=== PATIENT | male | born 1955 | race Caucasian/White ===

== ENCOUNTER 2017-12-02 02:21 | Inpatient (IN) | payer OTHER ==
[~2017-12-02] VITALS: Ht 172.7 cm; Wt 107.7 kg
[~2017-12-02 02:21] MED LIST: ALBU17I INH; AMIO200 PO; ASPI81 PO; BISA PO; COLE5 PO; COMBAER INH; DOXY100T PO; FURO1TAB93 PO; IBUP600 PO; KCL10 PO; LISI5 PO; LOMO2.5T PO; MAGN400 PO; METO25 PO; NOVONP2 SQ; POLY1.4S EACH EYE; TEMA15CA PO
[2017-12-02 02:29] VITALS: BP 132/62; PULSE 92; RESP 16; TEMP 98.7; O2SAT 100
[2017-12-02 03:14] LABS: BASOPHIL # 0.1 TH/MM3 (0-0.2); BASOPHIL % 0.6 % (0.0-2.0); EOSINOPHIL # 0.2 TH/MM3 (0-0.4); EOSINOPHIL % 1.2 % (0.0-4.0); HEMATOCRIT 38.1 % (39.0-51.0); HEMOGLOBIN 12.7 GM/DL (13.0-17.0); LYMPH % 32.2 % (9.0-44.0); LYMPHOCYTE # 4.5 TH/MM3 (1.0-4.8); MEAN CELL VOLUME 91.4 FL (80.0-100.0); MEAN CORPUSCULAR HEMOGLOBIN 30.5 PG (27.0-34.0); MEAN CORPUSCULAR HGB CONC 33.4 % (32.0-36.0); MEAN PLATELET VOLUME 9.3 FL (7.0-11.0); MONO % 8.7 % (0.0-8.0); MONOCYTE # 1.2 TH/MM3 (0-0.9); NEUT % 57.3 % (16.0-70.0); PLATELET COUNT 211 TH/MM3 (150-450); RED BLOOD COUNT 4.17 MIL/MM3 (4.50-5.90); RED CELL DISTRIBUTION WIDTH 13.7 % (11.6-17.2)
--- NOTE | 2017-12-02 03:16 | PD ---
HPI Chief Complaint: Psychiatric Symptoms Time Seen by Provider: 02:42 Travel History International Travel<30 days: No Contact w/Intl Traveler<30days: No Traveled to known affect area: No History of Present Illness HPI 62-year-old male brought in by PD under Oro act. According to the Oro act the patient was displaying erratic behavior after consuming an unknown substance. The patient destroyed things inside of his residence and at one point became on and with a pitchfork. He went outside to confront imaginary people. He has been yelling at his neighbors an imaginary people that he claims her outside. Oro act also states that the patient advised that he wanted to smoke cocaine until he . Apparently the patient was taken to [facility] , however was sent here because they did not feel that he was in their scope of care because of his history of diabetes. Someone had mentioned that the patient was complaining of chest pain, however the patient denies this and states that he has diffuse body aches and is requesting vitamin E. He admits to taking Tracy today and smoking marijuana. PFSH Past Medical History Hx Anticoagulant Therapy: Yes (ASPIRIN) Arthritis: Yes (right arm) Asthma: Yes Cancer: No Cardiovascular Problems: Yes (TRIPLE BYPASS, HTN) High Cholesterol: Yes Chest Pain: Yes Congestive Heart Failure: Yes COPD: Yes Diabetes: Yes Patient Takes Glucophage: Yes Diminished Hearing: No Endocrine: Yes Genitourinary: No Hypertension: Yes Immune Disorder: No Implanted Vascular Access Dvce: Yes Musculoskeletal: Yes Neurologic: No Psychiatric: No Reproductive: No Respiratory: Yes (ASTHMATIC, COPD) Renal Failure: Yes (CHRONIC RENAL INSUFFICIENCY) Thyroid Disease: Yes (HYPOTHYROID) Past Surgical History Cardiac Surgery: Yes (TRIPLE BYPASS) Cholecystectomy: Yes Joint Replacement: Yes (total hip, pelvic ) Other Surgery: Yes Social History Alcohol Use: Yes (OCC) Tobacco Use: Yes (QUIT) Substance Use: Yes (TRACY TODAY, COCAINE X2 A MONTH) Allergies-Medications (Allergen,Severity, Reaction): Coded Allergies: atorvastatin (Unverified Allergy, Unknown, 12/02/17) Reported Meds & Prescriptions Reported Meds & Active Scripts Active Active Prescriptions or Reported Medications Unobtainable Review of Systems Except as stated in HPI: all other systems reviewed are Neg Physical Exam Narrative GENERAL: Well-developed, well-nourished, awake, alert, combative, no apparent distress. SKIN: Focused skin assessment warm/dry. HEAD: Atraumatic. Normocephalic. EYES: Pupils equal and round. No scleral icterus. No injection or drainage. ENT: Mucous membranes pink and moist. NECK: Trachea midline. No JVD. CARDIOVASCULAR: Regular rate and rhythm. RESPIRATORY: No accessory muscle use. Clear to auscultation. Breath sounds equal bilaterally. GASTROINTESTINAL: Abdomen soft, non-tender, nondistended. MUSCULOSKELETAL: No obvious deformities. No clubbing. No cyanosis. No edema. NEUROLOGICAL: Awake and alert. No obvious cranial nerve deficits. Motor grossly within normal limits. Normal speech. PSYCHIATRIC: Agitated, appears intoxicated. Data Data Last Documented VS Vital Signs Date Time Temp Pulse Resp B/P (MAP) Pulse Ox O2 Delivery O2 Flow Rate FiO2 12/02/17 02:32 105 18 12/02/17 02:29 98.7 132/62 (85) 100 Orders Orders Complete Blood Count With Diff (12/02/17 02:47) Comprehensive Metabolic Panel (12/02/17 02:47) Thyroid Stimulating Hormone (12/02/17 02:47) Psych Screen (12/02/17 02:47) Drug Screen, Random Urine (12/02/17 02:47) Alcohol (Ethanol) (12/02/17 02:47) Salicylates (Aspirin) (12/02/17 02:47) Tylenol (Acetaminophen) (12/02/17 02:47) Ckmb (Isoenzyme) Profile (12/02/17 02:47) Troponin I (12/02/17 02:47) Chest, Single Ap (12/02/17 02:47) Olanzapine Inj (Zyprexa Inj) (12/02/17 03:30) Lorazepam Inj (Ativan Inj) (12/02/17 03:45) Lorazepam Inj (Ativan Inj) (12/02/17 03:39) CKMB (12/02/17 03:05) CKMB% (12/02/17 03:05) Sodium Chlor 0.9% 1000 Ml Inj (Ns 1000 M (12/02/17 04:00) Sodium Chlor 0.9% 1000 Ml Inj (Ns 1000 M (12/02/17 04:00) Aspirin Supp (Aspirin Supp) (12/02/17 04:00) Labs Laboratory Tests Test 12/02/17 03:05 White Blood Count 14.0 TH/MM3 Red Blood Count 4.17 MIL/MM3 Hemoglobin 12.7 GM/DL Hematocrit 38.1 % Mean Corpuscular Volume 91.4 FL Mean Corpuscular Hemoglobin 30.5 PG Mean Corpuscular Hemoglobin Concent 33.4 % Red Cell Distribution Width 13.7 % Platelet Count 211 TH/MM3 Mean Platelet Volume 9.3 FL Neutrophils (%) (Auto) 57.3 % Lymphocytes (%) (Auto) 32.2 % Monocytes (%) (Auto) 8.7 % Eosinophils (%) (Auto) 1.2 % Basophils (%) (Auto) 0.6 % Neutrophils # (Auto) 8.0 TH/MM3 Lymphocytes # (Auto) 4.5 TH/MM3 Monocytes # (Auto) 1.2 TH/MM3 Eosinophils # (Auto) 0.2 TH/MM3 Basophils # (Auto) 0.1 TH/MM3 CBC Comment DIFF FINAL Differential Comment Blood Urea Nitrogen 48 MG/DL Creatinine 2.53 MG/DL Random Glucose 147 MG/DL Total Protein 7.4 GM/DL Albumin 4.2 GM/DL Calcium Level 9.1 MG/DL Alkaline Phosphatase 129 U/L Aspartate Amino Transf (AST/SGOT) 53 U/L Alanine Aminotransferase (ALT/SGPT) 25 U/L Total Bilirubin 1.1 MG/DL Sodium Level 142 MEQ/L Potassium Level 4.2 MEQ/L Chloride Level 109 MEQ/L Carbon Dioxide Level 22.6 MEQ/L Anion Gap 10 MEQ/L Estimat Glomerular Filtration Rate 26 ML/MIN Total Creatine Kinase 1343 U/L Troponin I LESS THAN 0.02 NG/ML Thyroid Stimulating Hormone 3rd Gen 2.760 uIU/ML Salicylates Level LESS THAN 1.7 MG/DL Acetaminophen Level LESS THAN 2.0 MCG/ML Ethyl Alcohol Level LESS THAN 3 MG/DL [facility] Medical Decision Making Medical Screen Exam Complete: Yes Emergency Medical Condition: Yes Interpretation(s) EKG: Sinus, rate 99, normal axis, normal intervals, anterior and septal Q waves , no acute ischemic abnormalities. Differential Diagnosis Drug-induced mood disorder, metabolic abnormality Narrative Course The patient is agitated, verbally, and physically aggressive toward staff. He is danger to both himself and to staff. He arrived in 4-point restraints and this was continued. He was written for chemical restraint as well. Initial vital signs show heart rate 92, blood pressure 132/62, pulse ox 100% on room air, oral temp of 98.7F. CBC: WBC 14, hemoglobin 12.7, hematocrit 38.1, platelets 211 CMP is remarkable for BUN 48, creatinine 2.53, GFR 26, random glucose 447. Troponin is negative Total CK is 1343 Tylenol and salicylate levels are negative. Alcohol level is negative. Chest x-ray: No infiltrate seen. Displaced discontinuous sternal wire sutures with increased and the amount of displacement compared to prior chest x-ray in November 2015. Patient was complaining of diffuse muscle aches. Lab work is consistent with rhabdomyolysis with acute kidney injury. He will be given IV fluids. Again the patient was extremely agitated, likely substance-induced, and was a danger to both himself and to staff, therefore he required 4-point restraints as well as chemical restraints. Patient will be admitted to the medical service for further treatment and evaluation. Case discussed with Dr Garcia who will admit the patient to he hospitalist service. Diagnosis Primary Impression: Rhabdomyolysis Qualified Codes: M62.82 - Rhabdomyolysis Additional Impressions: Acute kidney injury Drug-induced mood disorder Admitting Information Admitting Physician Requests: Admit Scripts Unable to Obtain Active Prescriptions or Reported Meds Isael Laboy MD Dec 02, 2017 03:16
[2017-12-02] MEDS ORDERED: OLANZapine IM 10 MG VIAL IM ONE (03:30)
[2017-12-02] MEDS ORDERED: LORazepam 2 MG/ML VIAL ONE (03:39)
[2017-12-02] MEDS ORDERED: LORazepam 2 MG/ML VIAL IV PUSH ONE (03:45)
--- NOTE | 2017-12-02 03:52 | RADRPT ---
EXAM DATE/TIME: 12/02/2017 03:14 [place] COMPARISON: CHEST SINGLE AP, November 14, 2015, 0:59. INDICATIONS : Chest pain. MEDICAL HISTORY : Hypertension. Chronic obstructive pulmonary disease. Hypothyroidism.diabetes, asthma SURGICAL HISTORY : Cholecystectomy. CABG ENCOUNTER: Initial ACUITY: 1 day PAIN SCORE: 3/10 LOCATION: Bilateral chest FINDINGS: Study quality is limited by patient motion. The lungs are symmetrically aerated. No focal infiltrat es seen. The heart is normal in size. Prior median sternotomy with significant discontinuity of the sternal wire sutures, increased to prior examination in 2015. Healed fractures of both clavicles st able from prior. CONCLUSION: . 1. No infiltrate seen. 2. Displaced discontinuous sternal wire sutures, with increase in the amount of displacement compared to prior chest x-ray in November 2015. Juan Alva MD on December 02, 2017 at 3:48 Board Certified Radiologist. This report was verified electronically.
[2017-12-02 03:54] LABS: ACETAMINOPHEN LESS THAN 2.0 MCG/ML (10.0-30.0); ALBUMIN 4.2 GM/DL (3.4-5.0); ALKALINE PHOSPHATASE 129 U/L (45-117); ALT (GPT) 25 U/L (12-78); AST (GOT) 53 U/L (15-37); BICARBONATE 22.6 MEQ/L (21.0-32.0); BLOOD UREA NITROGEN 48 MG/DL (7-18); CALCIUM 9.1 MG/DL (8.5-10.1); CHLORIDE 109 MEQ/L (98-107); CREATININE 2.53 MG/DL (0.60-1.30); GLOMERULAR FILTRATION RATE 26 ML/MIN (>89); GLUCOSE,RANDOM 147 MG/DL (74-106); SODIUM (NA) 142 MEQ/L (136-145); TOTAL BILIRUBIN ADULT 1.1 MG/DL (0.2-1.0); TOTAL PROTEIN 7.4 GM/DL (6.4-8.2); TROPONIN I LESS THAN 0.02 NG/ML (0.02-0.05)
[2017-12-02] MEDS ORDERED: SODIUM CHLOR 0.9% 1000 ML INJ 1,000 ML IV ONE ×2 (04:00)
[2017-12-02] MEDS ORDERED: ACETAMINOPHEN 325 MG TAB PO PRN (04:00)
[2017-12-02] MEDS ORDERED: ASPIRIN 300 MG SUPP RECTAL ONE (04:00)
[2017-12-02] MEDS ORDERED: BISACODYL 10 MG SUPP RECTAL PRN (04:00)
[2017-12-02] MEDS ORDERED: MAGNESIUM HYDROXIDE SUSP 30 ML CUP PO PRN (04:00)
[2017-12-02] MEDS ORDERED: SODIUM CHLORIDE 0.9% FLUSH 10 ML FLUSH IV FLUSH PRN (04:00)
[2017-12-02] MEDS ORDERED: ONDANSETRON HCL 4 MG/2 ML VIAL IVP PRN (04:00)
[2017-12-02] MEDS ORDERED: ACETAMINOPHEN/HYDROcodone 325 MG/5 MG TAB PO PRN (04:00)
[2017-12-02] MEDS ORDERED: LACTULOSE SYRUP 20 GM/30 ML CUP PO PRN (04:00)
[2017-12-02] MEDS ORDERED: SENNOSIDES 8.6 MG TAB PO PRN (04:00)
[2017-12-02] MEDS ORDERED: ACETAMINOPHEN/HYDROcodone 325 MG/10 MG TAB PO PRN (04:00)
[2017-12-02] MEDS ORDERED: GLUCAGON 1 MG/ML VIAL OTHER PRN (04:30)
[2017-12-02] MEDS ORDERED: DEXTROSE 50% IN WATER 50 ML VIAL(D50) IV PUSH PRN (04:30)
--- NOTE | 2017-12-02 04:35 | HHI.HP ---
HPI Service [facility] Primary Care Physician Unknown Admission Diagnosis Rhabdomyolysis, ALF, Drug induced mood disorder Diagnoses: (1) Chest pain Diagnosis: Principal (2) ALF (acute kidney injury) Diagnosis: Principal (3) Intoxication by drug Diagnosis: Principal (4) Rhabdomyolysis Diagnosis: Principal (5) DM (diabetes mellitus) Diagnosis: Principal Travel History International Travel<30 Days: No Contact w/Intl Traveler <30 Da: No Traveled to Known Affected Are: No History of Present Illness This is a 62-year-old male with a PMH of HTN, Hyperlipidemia, CAD s/p CABG, COPD , DM and Substance Abuse who was brought to the ER by Police under Oro Act from [facility]. On arrival, pt is significantly agitated/combative, threatening staff, requiring mechanical and pharmacologic restraints. Per report, pt was found to be yelling at imaginary people and waving a pitchfork around, told Police he wanted to smoke crack until he . Was taken to [facility], however in light of his h/o DM and c/o chest pain, he was brought here. Does admit to taking Selam. History otherwise difficult to obtain at this time. On arrival, BP 132/62, HR 92, O2 sat 100% on RA, Afebrile. WBC 14. Creatinine 2.53, previously 1.13 on 11/14/15. CPK 1343. Troponin negative. Alcohol negative. CXR with no infiltrate, sternal wire sutures in place, increase in amount of displacement. S/p IVF in ER. Review of Systems Except as stated in HPI: all other systems reviewed are Neg ROS: Unable to obtain secondary to sedation Past Family Social History Past Medical History PMH: HTN, Hyperlipidemia, CAD s/p CABG, COPD, DM and Substance Abuse Past Surgical History PAST SURGICAL HISTORY: CABG, Cholecystectomy, Hip Replacement Allergies: Coded Allergies: atorvastatin (Unverified Allergy, Unknown, 12/02/17) Family History PAST FAMILY HISTORY: Reviewed. No h/o DM or CAD Social History PAST SOCIAL HISTORY: Occasional alcohol. History of tobacco. +Selam, Cocaine and Marijuana. 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 HEENT: PERRLA, EOMI. No scleral icterus or conjunctival pallor. No lid lag or facial droop. CARDIOVASCULAR: Regular rate and rhythm. No obvious murmurs to auscultation. No chest tenderness to palpation. RESPIRATORY: No obvious rhonchi or wheezing. Clear to auscultation. Breath sounds equal bilaterally. GASTROINTESTINAL: Abdomen soft, non-tender, nondistended. BS normal. MUSCULOSKELETAL: Extremities without clubbing, cyanosis, or edema. No obvious deformities. NEUROLOGICAL: Lethargic from sedation. No focal neurologic deficits. Moving both upper and lower extremities spontaneously. Laboratory Laboratory Tests Test 12/02/17 03:05 White Blood Count 14.0 Red Blood Count 4.17 Hemoglobin 12.7 Hematocrit 38.1 Mean Corpuscular Volume 91.4 Mean Corpuscular Hemoglobin 30.5 Mean Corpuscular Hemoglobin Concent 33.4 Red Cell Distribution Width 13.7 Platelet Count 211 Mean Platelet Volume 9.3 Neutrophils (%) (Auto) 57.3 Lymphocytes (%) (Auto) 32.2 Monocytes (%) (Auto) 8.7 Eosinophils (%) (Auto) 1.2 Basophils (%) (Auto) 0.6 Neutrophils # (Auto) 8.0 Lymphocytes # (Auto) 4.5 Monocytes # (Auto) 1.2 Eosinophils # (Auto) 0.2 Basophils # (Auto) 0.1 CBC Comment DIFF FINAL Differential Comment Blood Urea Nitrogen 48 Creatinine 2.53 Random Glucose 147 Total Protein 7.4 Albumin 4.2 Calcium Level 9.1 Alkaline Phosphatase 129 Aspartate Amino Transf (AST/SGOT) 53 Alanine Aminotransferase (ALT/SGPT) 25 Total Bilirubin 1.1 Sodium Level 142 Potassium Level 4.2 Chloride Level 109 Carbon Dioxide Level 22.6 Anion Gap 10 Estimat Glomerular Filtration Rate 26 Total Creatine Kinase 1343 Creatine Kinase MB 14.7 Creatine Kinase MB % 1.1 Troponin I LESS THAN 0.02 Thyroid Stimulating Hormone 3rd Gen 2.760 Salicylates Level LESS THAN 1.7 Acetaminophen Level LESS THAN 2.0 Ethyl Alcohol Level LESS THAN 3 Result Diagram: 12/02/1730412/02/17 030 Caprini VTE Risk Assessment Caprini VTE Risk Assessment: No/Low Risk (score <= 1) Caprini Risk Assessment Model Point Value = 1 Point Value = 2 Point Value = 3 Point Value = 5 Age 41-60 Minor surgery BMI > 25 kg/m2 Swollen legs Varicose veins or History of unexplained or recurrent spontaneous Oral contraceptives or hormone replacement Sepsis (< 1 month) Serious lung disease, including pneumonia (< 1 month) Abnormal pulmonary function Acute myocardial infarction Congestive heart failure (< 1 month) History of inflammatory bowel disease Medical patient at bed rest Age 61-74 Arthroscopic surgery Major open surgery (> 45 min) Laparoscopic surgery (> 45 min) Malignancy Confined to bed (> 72 hours) Immobilizing plaster cast Central venous access Age >= 75 History of VTE Family history of VTE Factor V Leiden Prothrombin [id number] Lupus anticoagulant Anticardiolipin antibodies Elevated serum homocysteine Heparin-induced thrombocytopenia Other congenital or acquired thrombophilia Stroke (< 1 month) Elective arthroplasty Hip, pelvis, or leg fracture Acute spinal cord injury (< 1 month) Prophylaxis Regimen Total Risk Factor Score Risk Level Prophylaxis Regimen 0-1 Low Early ambulation 2 Moderate Order ONE of the following: *Sequential Compression Device (SCD) *Heparin 5000 units SQ BID 3-4 Higher Order ONE of the following medications: *Heparin 5000 units SQ TID *Enoxaparin/Lovenox 40 mg SQ daily (WT < 150 kg, CrCl > 30 mL/min) *Enoxaparin/Lovenox 30 mg SQ daily (WT < 150 kg, CrCl > 10-29 mL/min) *Enoxaparin/Lovenox 30 mg SQ BID (WT < 150 kg, CrCl > 30 mL/min) AND/OR *Sequential Compression Device (SCD) 5 or more Highest Order ONE of the following medications: *Heparin 5000 units SQ TID (Preferred with Epidurals) *Enoxaparin/Lovenox 40 mg SQ daily (WT < 150 kg, CrCl > 30 mL/min) *Enoxaparin/Lovenox 30 mg SQ daily (WT < 150 kg, CrCl > 10-29 mL/min) *Enoxaparin/Lovenox 30 mg SQ BID (WT < 150 kg, CrCl > 30 mL/min) AND *Sequential Compression Device (SCD) Assessment and Plan Problem List: (1) Chest pain ICD Code: R07.9 - Chest pain, unspecified (2) Rhabdomyolysis ICD Code: M62.82 - Rhabdomyolysis Status: Acute (3) ALF (acute kidney injury) ICD Code: N17.9 - Acute kidney failure, unspecified (4) Intoxication by drug ICD Code: F19.929 - Other psychoactive substance use, unspecified with intoxication, unspecified (5) DM (diabetes mellitus) ICD Code: E11.9 - Type 2 diabetes mellitus without complications Assessment and Plan A/P: 1. Chest Pain: h/o CAD s/p CABG, c/o chest pain per report, r/o ACS. Initial trop negative, EKG w/ no acute ischemia. S/p ASA in ER, will continue w/ ASA, hold Statin in light of ALLERGY. Admit to CIC, check serial cardiac enzymes. NTG prn. Consult Cardiology as needed for further evaluation/intervention. CXR w/ no acute findings, sternal wires w/ increased displacement, images reviewed by me. 2. Rhabdomyolysis: CPK 1343, pending U/a and Urine Drug Screen. IVF for hydration, check CPK for trend. 3. ALF: Creatinine 2.53, previously 1.13 on 11/14/15, U/a and UDP pending as above. IVF for hydration, repeat labs in am. 4. Drug Intoxication: currently under [place] Act by Police for intoxication, reportedly wanting to smoke crack until he , agitated/combative on arrival requiring restraints. Ativan prn. Consult Psych for further evaluation. 5. DM: Sliding scale w/ Accu-Cheks. Check Hgb A1c. 6. DVT Prophylaxis: SCD/Teds. 7. Social work for d/c planning as needed. 8. Case discussed w/ ER physician at length, labs/records/imaging reviewed by me. Physician Certification 2 Midnight Certification Type: Admission for Inpatient Services Order for Inpatient Services The services are ordered in accordance with Medicare regulations or non- Medicare payer requirements, as applicable. In the case of services not specified as inpatient-only, they are appropriately provided as inpatient services in accordance with the 2-midnight benchmark. Estimated LOS (days): 2 days is the estimated time the patient will need to remain in the hospital, assuming treatment plan goals are met and no additional complications. Post-Hospital Plan: Not yet determined Problem Qualifiers (1) Rhabdomyolysis: Qualified Codes: M62.82 - Rhabdomyolysis Paula Garcia MD Dec 02, 2017 04:35
[2017-12-02] MEDS: SODIUM CHLOR 0.9% 1000 ML INJ 1,000 ML IV SCH ×3 (04:42→21:49)
[2017-12-02 05:24] VITALS: BP 147/67; PULSE 102; RESP 20; O2SAT 99
[2017-12-02] MEDS: LORazepam 2 MG/ML VIAL IV PUSH PRN ×2 (06:47→19:51)
[2017-12-02 07:45] VITALS: BP 139/61; PULSE 89
[2017-12-02 07:54] LABS: BILIRUBIN, URINE NEG (NEG); BLOOD, URINE NEG (NEG); GLUCOSE,URINE NEG (NEG); HYALINE CAST, URINE 29 /lpf (RARE); KETONE, URINE NEG (NEG); MUCUS URINE FEW /lpf (OCC); NITRITE,URINE NEG (NEG); PH, URINE 5.5 (5.0-8.5); SQUAMOUS EPITHELIAL CELL URINE <1 /hpf (0-5); URINE COLOR YELLOW (YELLW/STRAW); URINE LEUKOCYTE ESTERASE NEG (NEG)
[2017-12-02] MEDS: INSULIN ASPART SUPPLEMENTAL SCALE SQ SCH ×4 (08:00→23:33)
--- NOTE | 2017-12-02 08:58 | EKG ---
Date Performed: 12/02/2017 Time Performed: 02:34:00 PTAGE: 62 years EKG: Sinus rhythm POSSIBLE LEFT ATRIAL ENLARGEMENT ANTEROSEPTAL MYOCARDIAL INFARCTION ABNORMAL ECG PREVIOUS TRACING : 11/14/2015 05.55 DOCTOR: Tamir Sprague Interpretating Date/Time 12/02/2017 08:57:06
[2017-12-02] MEDS: SODIUM CHLORIDE 0.9% FLUSH 10 ML FLUSH IV FLUSH SCH ×2 (09:00→23:21)
[2017-12-02] MEDS: DOCUSATE SODIUM 50 MG/SENNA 8.6 MG TAB PO SCH ×2 (09:00→23:21)
[2017-12-02] MEDS: ASPIRIN EC 81 MG TABEC PO SCH (09:00)
--- NOTE | 2017-12-02 12:45 | PD.PSY.CON ---
Provisional Diagnosis Admission Date Dec 02, 2017 at 04:05 [place] I. Substance induced psychosis, History of Present Illness Service Psychiatry Consult Requested By Medical team Reason for Consult Aggressive behavior Primary Care Physician Unknown HPI This is a 62-year-old male with a PMH of HTN, Hyperlipidemia, CAD s/p CABG, COPD , DM and Substance Abuse who was brought to the ER by Police under [place] Act from [facility]. On arrival, pt is significantly agitated/combative, threatening staff, requiring mechanical and pharmacologic restraints. Per report, pt was found to be yelling at imaginary people and waving a pitchfork around, told Police he wanted to smoke crack until he . [facility], however in light of his h/o DM and c/o chest pain, he was brought here. Does admit to taking Selam. History otherwise difficult to obtain at this time. On arrival, BP 132/62, HR 92, O2 sat 100% on RA, Afebrile. WBC 14. Creatinine 2.53, previously 1.13 on 11/14/15. CPK 1343. Troponin negative. Alcohol negative. CXR with no infiltrate, sternal wire sutures in place, increase in amount of displacement. Consulted to psychiatry to address aggressive behavior and psychosis. Was medicated with Ativan IV. On arrival to calm her down. On psychiatric evaluation today the patient is too sedated to cooperate, in spite of multiple attempts the patient did not wake up. She was not able to answer any of my question. Psychiatric assessment could not be completed. Past Family Social History Coded Allergies: atorvastatin (Unverified Allergy, Unknown, 12/02/17) Unable to Obtain Active Prescriptions or Reported Meds Current Medications Medications (Trade) Dose Ordered Sig/Leif Route Start Time Stop Time Status Last Admin Sodium Chloride 1,000 ml @ 100 mls/hr Q10H IV 12/02/17 03:59 12/02/17 04:42 (NS Flush) 2 ml UNSCH PRN IV FLUSH 12/02/17 04:00 (NS Flush) 2 ml BID IV FLUSH 12/02/17 09:00 (Zofran Inj) 4 mg Q6H PRN IVP 12/02/17 04:00 (Tylenol) 650 mg Q6H PRN PO 12/02/17 04:00 ([place] 5-325 Mg) 1 tab Q4H PRN PO 12/02/17 04:00 ([place] 10-325 Mg) 1 tab Q4H PRN PO 12/02/17 04:00 (Yudelka-Colace) 1 tab BID PO 12/02/17 09:00 (Milk Of Magnesia Liq) 30 ml Q12H PRN PO 12/02/17 04:00 (Senokot) 17.2 mg Q12H PRN PO 12/02/17 04:00 (Dulcolax Supp) 10 mg DAILY PRN RECTAL 12/02/17 04:00 (Lactulose Liq) 30 ml DAILY PRN PO 12/02/17 04:00 (Ativan Inj) 1 mg Q2H PRN IV PUSH 12/02/17 04:00 12/02/17 06:47 (D50w (Vial) Inj) 50 ml UNSCH PRN IV PUSH 12/02/17 04:30 (Glucagon Inj) 1 mg UNSCH PRN OTHER 12/02/17 04:30 (NovoLOG SUPPLEMENTAL SCALE) 1 ACHS SLIDING SCALE SQ 12/02/17 08:00 (Ecotrin Ec) 81 mg DAILY PO 12/02/17 09:00 Physical Exam Vital Signs Vital Signs Date Time Temp Pulse Resp B/P (MAP) Pulse Ox O2 Delivery O2 Flow Rate FiO2 12/02/17 07:45 89 139/61 (87) 12/02/17 05:24 20 99 Room Air 12/02/17 02:29 98.7 I/O 12/02/17 12/02/17 12/03/17 08:00 16:00 00:00 Intake Total 2000 ml Output Total 600 ml Balance 1400 ml Lab Results Test 12/02/17 03:05 12/02/17 06:30 12/02/17 11:14 White Blood Count 14.0 TH/MM3 Red Blood Count 4.17 MIL/MM3 Hemoglobin 12.7 GM/DL Hematocrit 38.1 % Mean Corpuscular Volume 91.4 FL Mean Corpuscular Hemoglobin 30.5 PG Mean Corpuscular Hemoglobin Concent 33.4 % Red Cell Distribution Width 13.7 % Platelet Count 211 TH/MM3 Mean Platelet Volume 9.3 FL Neutrophils (%) (Auto) 57.3 % Lymphocytes (%) (Auto) 32.2 % Monocytes (%) (Auto) 8.7 % Eosinophils (%) (Auto) 1.2 % Basophils (%) (Auto) 0.6 % Neutrophils # (Auto) 8.0 TH/MM3 Lymphocytes # (Auto) 4.5 TH/MM3 Monocytes # (Auto) 1.2 TH/MM3 Eosinophils # (Auto) 0.2 TH/MM3 Basophils # (Auto) 0.1 TH/MM3 CBC Comment DIFF FINAL Differential Comment Blood Urea Nitrogen 48 MG/DL Creatinine 2.53 MG/DL Random Glucose 147 MG/DL Total Protein 7.4 GM/DL Albumin 4.2 GM/DL Calcium Level 9.1 MG/DL Alkaline Phosphatase 129 U/L Aspartate Amino Transf (AST/SGOT) 53 U/L Alanine Aminotransferase (ALT/SGPT) 25 U/L Total Bilirubin 1.1 MG/DL Sodium Level 142 MEQ/L Potassium Level 4.2 MEQ/L Chloride Level 109 MEQ/L Carbon Dioxide Level 22.6 MEQ/L Anion Gap 10 MEQ/L Estimat Glomerular Filtration Rate 26 ML/MIN Total Creatine Kinase 1343 U/L Creatine Kinase MB 14.7 NG/ML Creatine Kinase MB % 1.1 % Troponin I LESS THAN 0.02 NG/ML Thyroid Stimulating Hormone 3rd Gen 2.760 uIU/ML Salicylates Level LESS THAN 1.7 MG/DL Acetaminophen Level LESS THAN 2.0 MCG/ML Ethyl Alcohol Level LESS THAN 3 MG/DL Urine Color YELLOW Urine Turbidity CLEAR Urine pH 5.5 Urine Specific [place] 1.016 Urine Protein TRACE mg/dL Urine Glucose (UA) NEG mg/dL Urine Ketones NEG mg/dL Urine Occult Blood NEG Urine Nitrite NEG Urine Bilirubin NEG Urine Urobilinogen LESS THAN 2.0 MG/DL Urine Leukocyte Esterase NEG Urine RBC 1 /hpf Urine WBC LESS THAN 1 /hpf Urine Squamous Epithelial Cells <1 /hpf Urine Hyaline Casts 29 /lpf Urine Mucus FEW /lpf Microscopic Urinalysis Comment CULT NOT INDICATED Urine Opiates Screen NEG Urine Barbiturates Screen NEG Urine Amphetamines Screen NEG Urine Benzodiazepines Screen POS Urine Cocaine Screen POS Urine Cannabinoids Screen NEG Mental Status Examination Mental Status Exam Remarks Limited due to the level of sedation Assessment & Plan Problem List: (1) Substance-induced psychotic disorder ICD Codes: F19.959 - Other psychoactive substance use, unspecified with psychoactive substance-induced psychotic disorder, unspecified Assessment & Plan: I was unable to complete my psychiatric assessment during this evaluation. The patient is too sedated to cooperate at this moment. Patient has been very combative, agitated and disorganized, was given Ativan to calm her down. I recommend Haldol 5 mg every 8 hours IM when necessary aggressive behavior and agitation. Can start Seroquel 25 mg twice a day to help her with impulse control. I will lifted the Oro act in place. I will follow-up in the floor. Assessment & Plan Estimated LOS: days Srikanth Alberto MD Dec 02, 2017 12:45
[2017-12-02 13:21] LABS: TROPONIN I LESS THAN 0.02 NG/ML (0.02-0.05)
[2017-12-02 13:49] VITALS: BP 145/76
[2017-12-02 14:09] LABS: HEMOGLOBIN A1C 13.4 % (4.3-6.0)
[2017-12-02 16:00] VITALS: BP 130/82; PULSE 98; RESP 20; O2SAT 96
[2017-12-02 20:26] VITALS: BP 153/86; PULSE 98; RESP 18; TEMP 97.6; O2SAT 97
[2017-12-02 20:39] LABS: TROPONIN I LESS THAN 0.02 NG/ML (0.02-0.05)
[2017-12-03 00:32] VITALS: BP 118/67; PULSE 82; RESP 21; TEMP 97.3; O2SAT 98
[2017-12-03] MEDS: SODIUM CHLOR 0.9% 1000 ML INJ 1,000 ML IV SCH ×2 (05:08→17:55)
[2017-12-03 05:20] VITALS: BP 104/54; PULSE 64; RESP 19; TEMP 97.6; O2SAT 98
[2017-12-03 08:00] VITALS: BP 136/81; PULSE 75; PULSE 93; RESP 19; TEMP 96.7; O2SAT 95
[2017-12-03] MEDS: INSULIN ASPART SUPPLEMENTAL SCALE SQ SCH ×4 (08:00→21:00)
[2017-12-03 08:48] LABS: AUTOMATED NEUTROPHIL # 4.9 TH/MM3 (1.8-7.7); BASOPHIL # 0.1 TH/MM3 (0-0.2); BASOPHIL % 0.7 % (0.0-2.0); EOSINOPHIL # 0.3 TH/MM3 (0-0.4); EOSINOPHIL % 3.5 % (0.0-4.0); HEMATOCRIT 37.3 % (39.0-51.0); HEMOGLOBIN 12.6 GM/DL (13.0-17.0); LYMPH % 29.1 % (9.0-44.0); LYMPHOCYTE # 2.4 TH/MM3 (1.0-4.8); MEAN CELL VOLUME 90.6 FL (80.0-100.0); MEAN CORPUSCULAR HEMOGLOBIN 30.6 PG (27.0-34.0); MEAN CORPUSCULAR HGB CONC 33.7 % (32.0-36.0); MEAN PLATELET VOLUME 8.3 FL (7.0-11.0); MONO % 8.1 % (0.0-8.0); MONOCYTE # 0.7 TH/MM3 (0-0.9); NEUT % 58.6 % (16.0-70.0); PLATELET COUNT 171 TH/MM3 (150-450); RED BLOOD COUNT 4.12 MIL/MM3 (4.50-5.90); RED CELL DISTRIBUTION WIDTH 13.9 % (11.6-17.2); WHITE BLOOD COUNT 8.4 TH/MM3 (4.0-11.0)
[2017-12-03] MEDS: SODIUM CHLORIDE 0.9% FLUSH 10 ML FLUSH IV FLUSH SCH ×2 (09:00→21:00)
[2017-12-03] MEDS: ASPIRIN EC 81 MG TABEC PO SCH (09:36)
[2017-12-03] MEDS: DOCUSATE SODIUM 50 MG/SENNA 8.6 MG TAB PO SCH ×2 (09:36→21:00)
[2017-12-03 10:31] LABS: ALBUMIN 3.3 GM/DL (3.4-5.0); ALKALINE PHOSPHATASE 126 U/L (45-117); ALT (GPT) 27 U/L (12-78); AST (GOT) 42 U/L (15-37); BICARBONATE 21.5 MEQ/L (21.0-32.0); BLOOD UREA NITROGEN 26 MG/DL (7-18); CALCIUM 8.6 MG/DL (8.5-10.1); CHLORIDE 113 MEQ/L (98-107); GLOMERULAR FILTRATION RATE 76 ML/MIN (>89); GLUCOSE,RANDOM 173 MG/DL (74-106); SODIUM (NA) 142 MEQ/L (136-145); TOTAL BILIRUBIN ADULT 0.4 MG/DL (0.2-1.0); TOTAL PROTEIN 6.2 GM/DL (6.4-8.2)
--- NOTE | 2017-12-03 10:41 | HHI.PR ---
Subjective Remarks The patient said he feels great. He has chronic chest pain from the surgery he had. He denies any acute chest pain. He denies shortness of breath. He says he took Selam and sleeping pills prior to coming to the hospital. Sitter was at the bedside. Discussed with nursing. Objective Vitals Vital Signs Date Time Temp Pulse Resp B/P (MAP) Pulse Ox O2 Delivery O2 Flow Rate FiO2 12/03/17 08:00 96.7 75 19 136/81 (99) 95 12/03/17 05:20 97.6 64 19 104/54 (71) 98 12/03/17 00:32 97.3 82 21 118/67 (84) 98 12/02/17 20:26 97.6 98 18 153/86 (108) 97 12/02/17 16:00 98 20 130/82 (98) 96 12/02/17 13:49 145/76 (99) I/O 12/02/17 12/02/17 12/02/17 12/03/17 12/03/17 12/03/17 07:00 15:00 23:00 07:00 15:00 23:00 Intake Total 2000 ml 480 ml Output Total 600 ml Balance 1400 ml 480 ml Intake Oral 480 ml IV Total 2000 ml Output Urine Total 600 ml # Voids 1 1 Result Diagram: 12/03/17 0830 12/03/17 0830 Imaging Last Impressions Chest X-Ray 12/02/17 0247 Signed Impressions: Service Date/Time: Saturday, December 02, 2017 03:14 - CONCLUSION: . 1. No infiltrate seen. 2. Displaced discontinuous sternal wire sutures, with increase in the amount of displacement compared to prior chest x-ray in November 2015. Juan Alva MD Objective Remarks GENERAL: Resting comfortably. HEENT: PERRLA, EOMI. No scleral icterus or conjunctival pallor. No lid lag or facial droop. CARDIOVASCULAR: Regular rate and rhythm. No obvious murmurs to auscultation. No chest tenderness to palpation. RESPIRATORY: Mild wheezing. GASTROINTESTINAL: Abdomen soft, non-tender, nondistended. BS normal. MUSCULOSKELETAL: Extremities without clubbing, cyanosis, or edema. No obvious deformities. NEUROLOGICAL: No gross deficits. Moving both upper and lower extremities spontaneously. PSYCH: Mood and affect appropriate. Medications and IVs Current Medications Medications (Trade) Dose Ordered Sig/Leif Route Start Time Stop Time Status Last Admin Sodium Chloride 1,000 ml @ 50 mls/hr Q20H IV 12/02/17 03:59 12/03/17 05:08 (NS Flush) 2 ml UNSCH PRN IV FLUSH 12/02/17 04:00 (NS Flush) 2 ml BID IV FLUSH 12/02/17 09:00 12/03/17 09:00 (Zofran Inj) 4 mg Q6H PRN IVP 12/02/17 04:00 (Tylenol) 650 mg Q6H PRN PO 12/02/17 04:00 (Denison 5-325 Mg) 1 tab Q4H PRN PO 12/02/17 04:00 (Denison 10-325 Mg) 1 tab Q4H PRN PO 12/02/17 04:00 12/02/17 19:51 (Yudelka-Colace) 1 tab BID PO 12/02/17 09:00 12/03/17 09:36 (Milk Of Magnesia Liq) 30 ml Q12H PRN PO 12/02/17 04:00 (Senokot) 17.2 mg Q12H PRN PO 12/02/17 04:00 (Dulcolax Supp) 10 mg DAILY PRN RECTAL 12/02/17 04:00 (Lactulose Liq) 30 ml DAILY PRN PO 12/02/17 04:00 (Ativan Inj) 1 mg Q2H PRN IV PUSH 12/02/17 04:00 12/02/17 19:51 (D50w (Vial) Inj) 50 ml UNSCH PRN IV PUSH 12/02/17 04:30 (Glucagon Inj) 1 mg UNSCH PRN OTHER 12/02/17 04:30 (NovoLOG SUPPLEMENTAL SCALE) 1 ACHS SLIDING SCALE SQ 12/02/17 08:00 12/03/17 08:00 (Ecotrin Ec) 81 mg DAILY PO 12/02/17 09:00 12/03/17 09:36 (Levemir Inj) 15 units DAILY SQ 12/03/17 11:00 (Proair Hfa Inh) 2 puff Q4H PRN INH 12/03/17 11:15 (Symbicort 160-4.5 Mcg Inh) 2 puff Q12HR INH 12/03/17 11:15 UNV A/P Problem List: (1) Chest pain ICD Code: R07.9 - Chest pain, unspecified (2) Rhabdomyolysis ICD Code: M62.82 - Rhabdomyolysis Status: Acute (3) ALF (acute kidney injury) ICD Code: N17.9 - Acute kidney failure, unspecified (4) Intoxication by drug ICD Code: F19.929 - Other psychoactive substance use, unspecified with intoxication, unspecified (5) DM (diabetes mellitus) ICD Code: E11.9 - Type 2 diabetes mellitus without complications Assessment and Plan Chest pain H/o CAD s/p CABG, c/o chest pain per report. Chronic from surgery, per patient. EKG w/ no acute ischemia. CXR w/ no acute findings, sternal wires w/ increased displacement. S/p ASA in ER. Trops negative x 3. - will continue w/ ASA. - hold statin s/t rhabdo. - telemetry. Rhabdomyolysis CPK 1343. Improving with IVFs. - continue IVFs. Decrease rate s/t CHF. - follow CPK. ALF Creatinine 2.53. Improved with IVFs. - IVF for hydration. Decrease rate. - repeat labs in am. Drug Intoxication Drug screen positive for benzos and cocaine. Was under [place] by police for intoxication, reportedly wanting to smoke crack until he . Agitated/ combative on arrival requiring restraints. Psych consult appreciated. Calm now. States he took Selam along with sleeping pills. - Ativan prn. - follow up with psych. DM A1c 13.4%. - Sliding scale w/ Accu-Cheks. - add Levemir 15 units daily. COPD Mild wheezing. - albuterol and Symbicort. - oxygen as needed. Noncompliance The pt does not take his meds regularly. - need updated medication list. - encourage pt to take meds. DVT Prophylaxis: SCD/Teds Discharge Planning Anticipate 1-2 days Problem Qualifiers (1) Rhabdomyolysis: Qualified Codes: M62.82 - Rhabdomyolysis Espinoza Cortez DO Dec 03, 2017 10:41
[2017-12-03] MEDS: INSULIN DETEMIR 100 UNITS/ML VIAL SQ SCH (11:00)
[2017-12-03] MEDS ORDERED: ALBUTEROL SULFATE 90 MCG/ACT HFA 8 GM INHALER INH PRN (11:15)
[2017-12-03 12:00] VITALS: PULSE 83
[2017-12-03] MEDS ORDERED: BUDESONIDE-FORMOTEROL 160/4.5 MCG INHALER INH SCH (12:00)
[2017-12-03 16:00] VITALS: BP 113/61; PULSE 66; RESP 19; TEMP 98.7; O2SAT 96
[2017-12-03 20:00] VITALS: BP 124/95; PULSE 92; RESP 20; TEMP 97.6; O2SAT 95
[2017-12-04] VITALS: BP 143/88; PULSE 100; RESP 20; TEMP 98.1; O2SAT 95
[2017-12-04 00:09] VITALS: PULSE 73
[2017-12-04 04:00] VITALS: BP 142/80; PULSE 98; RESP 20; TEMP 98; O2SAT 96
[2017-12-04 04:05] VITALS: PULSE 90
[2017-12-04 07:33] VITALS: BP 158/89; PULSE 99; RESP 20; TEMP 97.9; O2SAT 97
[2017-12-04] MEDS: INSULIN ASPART SUPPLEMENTAL SCALE SQ SCH ×2 (08:00→12:00)
[2017-12-04] MEDS: DOCUSATE SODIUM 50 MG/SENNA 8.6 MG TAB PO SCH (08:05)
[2017-12-04] MEDS: ASPIRIN EC 81 MG TABEC PO SCH (08:05)
[2017-12-04] MEDS: SODIUM CHLORIDE 0.9% FLUSH 10 ML FLUSH IV FLUSH SCH (08:06)
[2017-12-04] MEDS: INSULIN DETEMIR 100 UNITS/ML VIAL SQ SCH (08:07)
[2017-12-04 10:14] LABS: CALCIUM 9.2 MG/DL (8.5-10.1); CREATININE 1.11 MG/DL (0.60-1.30); MAGNESIUM 1.2 MG/DL (1.5-2.5)
[2017-12-04] MEDS ORDERED: MAGN400T3 PO (12:05)
[2017-12-04] MEDS ORDERED: PRED20 PO (12:05)
--- NOTE | 2017-12-04 12:07 | HHI.DCPOC ---
Discharge Care Plan Diagnosis: (1) Substance-induced psychotic disorder (2) Intoxication by drug (3) ALF (acute kidney injury) (4) DM (diabetes mellitus) (5) Rhabdomyolysis (6) Atypical chest pain Goals to Promote Your Health * To prevent worsening of your condition and complications * To maintain your health at the optimal level Directions to Meet Your Goals Take your medications as prescribed Follow your dietary instruction Follow activity as directed Keep your appointments as scheduled Take your immunizations and boosters as scheduled If your symptoms worsen call your PCP, if no PCP go to Urgent Care Center or Emergency Room Smoking is Dangerous to Your Health. Avoid second hand smoke Call the 24-hour hour crisis hotline for domestic abuse at Espinoza Cortez DO Dec 04, 2017 12:07
--- NOTE | 2017-12-04 12:14 | HHI.DS ---
Discharge Summary Admission Date Dec 02, 2017 at 04:05 Discharge Date: Dec 04, 2017 Admitting Diagnosis Rhabdomyolysis, ALF, Drug induced mood disorder (1) Chest pain ICD Code: R07.9 - Chest pain, unspecified (2) Rhabdomyolysis ICD Code: M62.82 - Rhabdomyolysis Diagnosis: Principal Status: Acute (3) ALF (acute kidney injury) ICD Code: N17.9 - Acute kidney failure, unspecified Diagnosis: Principal (4) Intoxication by drug ICD Code: F19.929 - Other psychoactive substance use, unspecified with intoxication, unspecified Diagnosis: Principal (5) DM (diabetes mellitus) ICD Code: E11.9 - Type 2 diabetes mellitus without complications Procedures None Brief History - From Admission This is a 62-year-old male with a PMH of HTN, Hyperlipidemia, CAD s/p CABG, COPD , DM and Substance Abuse who was brought to the ER by Police under [place] Act from [facility]. On arrival, pt is significantly agitated/combative, threatening staff, requiring mechanical and pharmacologic restraints. Per report, pt was found to be yelling at imaginary people and waving a pitchfork around, told Police he wanted to smoke crack until he . Was [facility] to [facility], however in light of his h/o DM and c/o chest pain, he was brought here. Does admit to taking Selam. History otherwise difficult to obtain at this time. On arrival, BP 132/62, HR 92, O2 sat 100% on RA, Afebrile. WBC 14. Creatinine 2.53, previously 1.13 on 11/14/15. CPK 1343. Troponin negative. Alcohol negative. CXR with no infiltrate, sternal wire sutures in place, increase in amount of displacement. S/p IVF in ER. CBC/BMP: 12/03/17 0830 12/04/17 0810 Significant Findings Laboratory Tests Test 12/02/17 03:05 12/02/17 06:30 12/02/17 11:14 12/02/17 19:22 White Blood Count 14.0 TH/MM3 (4.0-11.0) Red Blood Count 4.17 MIL/MM3 (4.50-5.90) Hemoglobin 12.7 GM/DL (13.0-17.0) Hematocrit 38.1 % (39.0-51.0) Monocytes (%) (Auto) 8.7 % (0.0-8.0) Neutrophils # (Auto) 8.0 TH/MM3 (1.8-7.7) Monocytes # (Auto) 1.2 TH/MM3 (0-0.9) Blood Urea Nitrogen 48 MG/DL (7-18) Creatinine 2.53 MG/DL (0.60-1.30) Random Glucose 147 MG/DL (74-106) Alkaline Phosphatase 129 U/L (45-117) Aspartate Amino Transf (AST/SGOT) 53 U/L (15-37) Total Bilirubin 1.1 MG/DL (0.2-1.0) Chloride Level 109 MEQ/L (98-107) Estimat Glomerular Filtration Rate 26 ML/MIN (>89) Total Creatine Kinase 1343 U/L (39-308) 1398 U/L (39-308) 1218 U/L (39-308) Creatine Kinase MB 14.7 NG/ML (0.5-3.6) 16.7 NG/ML (0.5-3.6) 13.8 NG/ML (0.5-3.6) Troponin I LESS THAN 0.02 NG/ML LESS THAN 0.02 NG/ML LESS THAN 0.02 NG/ML Salicylates Level LESS THAN 1.7 MG/DL Acetaminophen Level LESS THAN 2.0 MCG/ML Urine Mucus FEW /lpf (OCC) Urine Benzodiazepines Screen POS (NEG) Urine Cocaine Screen POS (NEG) Hemoglobin A1c 13.4 % (4.3-6.0) Test 12/03/17 08:30 12/04/17 08:10 Red Blood Count 4.12 MIL/MM3 (4.50-5.90) Hemoglobin 12.6 GM/DL (13.0-17.0) Hematocrit 37.3 % (39.0-51.0) Monocytes (%) (Auto) 8.1 % (0.0-8.0) Blood Urea Nitrogen 26 MG/DL (7-18) Random Glucose 173 MG/DL (74-106) 198 MG/DL (74-106) Total Protein 6.2 GM/DL (6.4-8.2) Albumin 3.3 GM/DL (3.4-5.0) Alkaline Phosphatase 126 U/L (45-117) Aspartate Amino Transf (AST/SGOT) 42 U/L (15-37) Chloride Level 113 MEQ/L (98-107) Estimat Glomerular Filtration Rate 76 ML/MIN (>89) 67 ML/MIN (>89) Total Creatine Kinase 737 U/L (39-308) 396 U/L (39-308) Creatine Kinase MB 7.6 NG/ML (0.5-3.6) Magnesium Level 1.2 MG/DL (1.5-2.5) Imaging Last Impressions Chest X-Ray 12/02/17 0247 Signed Impressions: Service Date/Time: Saturday, December 02, 2017 03:14 - CONCLUSION: . 1. No infiltrate seen. 2. Displaced discontinuous sternal wire sutures, with increase in the amount of displacement compared to prior chest x-ray in November 2015. Juan Alva MD PE at Discharge GENERAL: Resting comfortably. HEENT: PERRLA, EOMI. No scleral icterus or conjunctival pallor. No lid lag or facial droop. CARDIOVASCULAR: Regular rate and rhythm. No obvious murmurs to auscultation. No chest tenderness to palpation. RESPIRATORY: Mild wheezing. GASTROINTESTINAL: Abdomen soft, non-tender, nondistended. BS normal. MUSCULOSKELETAL: Extremities without clubbing, cyanosis, or edema. No obvious deformities. NEUROLOGICAL: No gross deficits. Moving both upper and lower extremities spontaneously. PSYCH: Mood and affect appropriate. Pt update on day of discharge The patient was feeling well and wanted to go home. He said he will need transportation home. He said that he is short of breath chronically. Discussed with nursing and case management. Hospital Course Drug Intoxication Drug screen positive for benzos and cocaine. Was under [place] by police for intoxication, reportedly wanting to smoke crack until he . Agitated/ combative on arrival requiring restraints. Psychiatry was consulted. Calm now. States he took Selam along with sleeping pills. He received Ativan prn. He was cleared by psychiatry. He received cessation instruction. Rhabdomyolysis CPK 1343 on admission. Improved with IVFs. CPK level was 396 on the day of discharge. ALF Creatinine 2.53 on presentation. Resolved with IVFs. Chest pain H/o CAD s/p CABG. Chronic from surgery, per patient. EKG w/ no acute ischemia. CXR w/ no acute findings, sternal wires w/ increased displacement. S/p ASA in ER. Trops negative x 3. He was monitored on telemetry. He will resume his home regimen. DM A1c 13.4%. He was placed on a sliding scale w/ Accu-Cheks. We added Levemir 15 units daily. He will resume his home regimen upon discharge. COPD Mild wheezing. He received albuterol and Symbicort as well as oxygen as needed. He will be discharged on prednisone 20 mg daily x 5 days. Noncompliance The pt does not take his home medications regularly. We stressed the importance of taking medications as directed. Hypomagnesemia The pt received IV mg sulfate. He will be discharged with PO magnesium oxide. Pt Condition on Discharge: Stable Discharge Disposition: Discharge Home Discharge Time: <= 30 minutes Discharge Instructions DIET: Follow Instructions for: Diabetic Diet Activities you can perform: Weight Bearing as Dm Follow up Referrals: PCP Follow-up - 1 Week PCP Follow-up New Medications: Magnesium Oxide (Magnesium Oxide) 400 Mg Tab 1 TAB PO BID for magnesium for 7 Days, #14 TAB Prednisone (Prednisone) 20 Mg Tab 20 MG PO DAILY for Broncospasm for 5 Days, #5 TAB 0 Refills Espinoza Cortez DO Dec 04, 2017 12:14
[2017-12-04] MEDS ORDERED: MAGNESIUM SULFATE 1 GM PREMIX 100 ML IV SCH (13:00)
--- NOTE | 2017-12-04 13:28 | HHI.PYPN ---
Subjective Remarks Patient was seen today for psychiatric reevaluation. Case was discussed with primary medical attending. On psychiatric evaluation the patient is calm, cooperative, he reports that he feels very good. He says that the reason he was so disorganized "and crazy"is because after his birthday he use "some drugs and alcohol". She reported that he used drugs that he never used before, such as Selam. He denies depressive symptoms, he denies anxiety, he denies jun and psychosis, he denies suicidal and homicidal ideation. The patient denies previous psychiatric history, he denies previous suicidal attempts. He is logical, he is coherent and relevant. Oriented 3, no attention deficit. Mental Status Examination Appearance: Appropriate Consciousness: Alert Orientation: x4 Motor Activity: Normal gait Speech: Unremarkable Language: Adequate Fund of Knowledge: Adequate Attention and Concentration: Adequate Memory: Unremarkable Mood: Appropriate Affect: Appropriate Thought Process & Associations: Intact Thought Content: Appropriate Hallucination Type: None Delusion Type: None Suicidal Ideation: No Suicidal Plan: No Suicidal Intention: No Homicidal Ideation: No Homicidal Plan: No Homicidal Intention: No Insight: Adequate Judgment: Adequate Results Labs Test 12/04/17 08:10 Blood Urea Nitrogen 17 MG/DL Creatinine 1.11 MG/DL Random Glucose 198 MG/DL Calcium Level 9.2 MG/DL Magnesium Level 1.2 MG/DL Sodium Level 139 MEQ/L Potassium Level 4.5 MEQ/L Chloride Level 107 MEQ/L Carbon Dioxide Level 24.0 MEQ/L Anion Gap 8 MEQ/L Estimat Glomerular Filtration Rate 67 ML/MIN Total Creatine Kinase 396 U/L Creatine Kinase MB 3.5 NG/ML Creatine Kinase MB % 0.9 % Vitals/IOs Vital Signs Date Time Temp Pulse Resp B/P (MAP) Pulse Ox O2 Delivery O2 Flow Rate FiO2 12/04/17 07:33 97.9 99 20 158/89 (112) 97 12/02/17 05:24 Room Air Intake and Output 12/04/17 12/04/17 12/05/17 08:00 16:00 00:00 Intake Total 500 ml Output Total 800 ml Balance -300 ml Assessment & Plan Problem List: (1) Substance-induced psychotic disorder ICD Codes: F19.959 - Other psychoactive substance use, unspecified with psychoactive substance-induced psychotic disorder, unspecified Assessment & Plan: The patient does not meet criteria for involuntary psychiatric admission at this moment. He is not psychotic, denies depression, denies anxiety, he is not manic. He denies suicidal and homicidal ideation. Apparently recent psychotic symptoms were related with acute polysubstance intoxication. Assessment & Plan Estimated LOS: days Justification for Cont. Inpt. No psychiatric admission at this moment. Srikanth Alberto MD Dec 04, 2017 13:28
== END 2017-12-04 14:14 | disposition home or self-care (01) | DRG 897 ==
LOC: NEPE 02:21 → NEDA 04:05 → NEDH 09:39 → N05B 15:08
PROVIDERS: ADMIT Hospitalist; ATTEND Hospitalist
DX: F19.159 Other psychoactive substance abuse with psychoactive substance-induced psychotic disorder, unspecified (principal); N17.9 Acute kidney failure, unspecified; M62.82 Rhabdomyolysis; I13.0 Hypertensive heart and chronic kidney disease with heart failure and stage 1 through stage 4 chronic kidney disease, or unspecified chronic kidney disease; I50.9 Heart failure, unspecified; E11.22 Type 2 diabetes mellitus with diabetic chronic kidney disease; E83.42 Hypomagnesemia; Z78.1 Physical restraint status; F19.129 Other psychoactive substance abuse with intoxication, unspecified; R45.1 Restlessness and agitation; Z96.649 Presence of unspecified artificial hip joint; J44.9 Chronic obstructive pulmonary disease, unspecified; E03.9 Hypothyroidism, unspecified; E07.9 Disorder of thyroid, unspecified; M19.90 Unspecified osteoarthritis, unspecified site; E78.00 Pure hypercholesterolemia, unspecified; N18.9 Chronic kidney disease, unspecified; I25.10 Atherosclerotic heart disease of native coronary artery without angina pectoris; G89.29 Other chronic pain; R07.89 Other chest pain; Z87.891 Personal history of nicotine dependence; Z79.82 Long term (current) use of aspirin; Z95.1 Presence of aortocoronary bypass graft; Z91.19 Patient's noncompliance with other medical treatment and regimen
CPT/HCPCS: 71045; 80048; 80053; 80307; 81001; 82550; 82552; 82948; 83036; 83735; 84443; 84484; 85025; 93005; 96372; 96374; J1815; J2060; J3475; J7030